=== PATIENT | male | born 1955 | race Caucasian/White ===

== ENCOUNTER → 2023-01-30 | Emergency (ER) | payer MEDICARE, OTHER ==
[~2023-01-30] VITALS: Ht 182.9 cm; Wt 116.0 kg
[~2023-01-30] MED LIST: PREDNISONE20 MG PO
--- NOTE | ~2023-01-30 | EKG ---
[facility] [address] [place], [place] [address] Draft EKG completed, results pending confirmation PATIENT NAME: ARLENE JACKSON Electrocardiogram DATE OF : 55 PHYSICIAN: PRELIMINARY REPORT #: [id number] REPORT IS CONFIDENTIAL AND NOT TO BE RELEASED WITHOUT AUTHORIZATION
[2023-01-30 07:17] VITALS: BP 118/67
== END ==
LOC: ED 04:24
DX: R07.89 Other chest pain (principal); I25.10 Atherosclerotic heart disease of native coronary artery without angina pectoris; F17.220 Nicotine dependence, chewing tobacco, uncomplicated; Z88.8 Allergy status to other drugs, medicaments and biological substances; Z79.899 Other long term (current) drug therapy
CPT/HCPCS: 36415; 71045; 80053; 83735; 83880; 84484; 85025; 85379; 93005; 93010; 96374; 99285-25; A9270